=== PATIENT | female | born 1990 | race African-American/Black ===

== ENCOUNTER 2025-03-14 16:43 | Emergency (ER) | payer MEDICAID ==
[~2025-03-14] VITALS: Ht 160 cm; Wt 60.0 kg
[2025-03-14 16:45] VITALS: O2SAT 100
[2025-03-14 20:30] LABS: BASOPHILS % 0.8 % (0.0-2.0); EOSINOPHILS % 3.8 % (0.0-5.0); HEMATOCRIT. 35.1 % (36.0-48.0); HEMOGLOBIN. 11.8 g/dL (12.0-16.0); LYMPHOCYTES % 27.8 % (20.0-50.0); MEAN PLATELET VOLUME 8.5 fl (7.4-10.4); MONOCYTES % 9.3 % (2.0-8.0); NEUTROPHILS % 58.3 % (40.0-76.0); PLATELET 343 x1000/uL (130-400); RED BLOOD CELL COUNT 3.82 mill/uL (4.2-5.4); RED CELL DISTRIBUTION WIDTH 15.7 % (11.6-14.6)
[2025-03-14 20:48] LABS: B-HCG QUANTITATIVE 46 mIU/mL (<6); CREATININE 4.9 mg/dL (0.6-1.0); UREA NITROGEN BLOOD 14 mg/dL (9-23)
[2025-03-14 20:49] LABS: TROPONIN I HIGH SENSITIVITY 10 ng/L (3.0-34)
[2025-03-14 20:50] LABS: ASPARTATE AMINOTRANSFERASE 14 IU/L (<34); BILIRUBIN DIRECT < 0.1 mg/dL (<=3.0)
[2025-03-14 20:51] LABS: BILIRUBIN TOTAL 0.2 mg/dL (0.1-1.0); PROTEIN TOTAL 7.3 g/dL (6.0-8.3)
[2025-03-14] MEDS ORDERED: MAGNESIUM/ALUMINUM HYDROXIDE/SIMETHICONE 30ML UDC PO PRN (22:00)
[2025-03-14] MEDS ORDERED: CLONIDINE 0.1MG TABLET PO PRN (22:00)
[2025-03-14] MEDS ORDERED: ONDANSETRON HCL 4MG/2ML INJ IV PRN (22:00)
[2025-03-14] MEDS ORDERED: ACETAMINOPHEN 325MG TABLET PO PRN ×2 (22:00)
[2025-03-14 22:22] VITALS: BP 120/76; PULSE 101; RESP 14; TEMP 37.3; O2SAT 99
[2025-03-15] MEDS ORDERED: AMLODIPINE 10MG TABLET PO SCH (09:00)
[2025-03-15] MEDS ORDERED: LISINOPRIL 20MG TABLET PO SCH (09:00)
== END 2025-03-14 22:51 | disposition home or self-care (01) ==
LOC: EDBD 16:43 → ER 16:43 → CMPBEDREQ 03-15 08:00
DX: R07.89 Other chest pain (principal); N89.8 Other specified noninflammatory disorders of vagina; E11.22 Type 2 diabetes mellitus with diabetic chronic kidney disease; N18.6 End stage renal disease; Z99.2 Dependence on renal dialysis
CPT/HCPCS: 36415; 71045; 80048; 80076; 83735; 83880; 84484; 84702; 85025; 93005; 99285